=== PATIENT | female | born 1975 | race Caucasian/White ===

== ENCOUNTER → 2016-08-31 | Outpatient (CLI) | payer MEDICAID | LOC: FIMAGING 14:23 | PROVIDERS: ATTEND Nurse Practitioner | DX: D25.2 Subserosal leiomyoma of uterus (principal); N83.02 Follicular cyst of left ovary ==

== ENCOUNTER → 2018-01-22 | Outpatient (CLI) | payer MEDICAID | LOC: FIMAGING 15:08 | PROVIDERS: ATTEND Advanced Practice Midwife | DX: R92.8 Other abnormal and inconclusive findings on diagnostic imaging of breast (principal); D25.9 Leiomyoma of uterus, unspecified; N83.201 Unspecified ovarian cyst, right side ==